=== PATIENT | male | born 1990 | race Caucasian/White ===

== ENCOUNTER 2020-05-12 03:25 | Emergency (ER) | payer OTHER ==
[~2020-05-12] VITALS: Ht 180.3 cm; Wt 90.7 kg
[~2020-05-12 03:25] MED LIST: DENIES; DOXYCYCLINE 10100 MG PO; PERCOCET 7.5-51 EACH PO
[2020-05-12] MEDS ORDERED: IBUPROFEN200 M1 (03:33)
[2020-05-12] MEDS ORDERED: BUTALB-APAP-CA1 EACH PO (05:29)
[2020-05-12 05:37] VITALS: BP 125/71
== END 2020-05-12 05:30 | disposition home or self-care (01) ==
LOC: ER 03:25
DX: G43.909 Migraine, unspecified, not intractable, without status migrainosus (principal); M54.5 Low back pain; F17.210 Nicotine dependence, cigarettes, uncomplicated